=== PATIENT | male | born 1945 | race Caucasian/White ===

== ENCOUNTER → 2018-05-07 | Outpatient (REF) | payer MEDICARE, OTHER ==
[2018-05-07 10:11] LABS: INTERNATIONAL NORMALIZED RATIO 4.2 RATIO (0.7-1.3); PROTHROMBIN TIME 43.5 SECONDS (9.0-12.5)
== END | disposition home or self-care (01) ==
LOC: LAB 09:18
DX: I35.9 Nonrheumatic aortic valve disorder, unspecified (principal); Z95.2 Presence of prosthetic heart valve; Z79.01 Long term (current) use of anticoagulants

== ENCOUNTER → 2018-05-12 | Outpatient (REF) | payer MEDICARE, OTHER ==
[2018-05-12 08:44] LABS: PROTHROMBIN TIME 30.9 SECONDS (9.0-12.5)
== END | disposition home or self-care (01) ==
LOC: LAB 08:05
DX: I35.9 Nonrheumatic aortic valve disorder, unspecified (principal); Z95.2 Presence of prosthetic heart valve; Z79.01 Long term (current) use of anticoagulants

== ENCOUNTER → 2018-05-20 | Outpatient (REF) | payer MEDICARE, OTHER ==
[2018-05-20 10:40] LABS: INTERNATIONAL NORMALIZED RATIO 2.4 RATIO (0.7-1.3); PROTHROMBIN TIME 25.2 SECONDS (9.0-12.5)
== END | disposition home or self-care (01) ==
LOC: LAB 09:35
DX: I35.9 Nonrheumatic aortic valve disorder, unspecified (principal); Z95.2 Presence of prosthetic heart valve; Z79.01 Long term (current) use of anticoagulants

== ENCOUNTER 2022-05-10 08:27 | Emergency (ER) | payer MEDICARE, OTHER ==
[~2022-05-10] VITALS: Ht 170.2 cm; Wt 82.0 kg
[2022-05-10 10:25] LABS: BASO% 0.5 % (0-3); EOS% 2.5 % (0-8); HEMATOCRIT 40.2 % (39.0-50.0); HEMOGLOBIN 13.3 g/dl (14.0-18.0); IMMATURE GRANULOCYTES 0.3 % (0.0-5.0); LYMPH% 9.8 % (15-41); MEAN CELL VOLUME 80.7 fL CALC (80.0-100.0); MEAN CORPUSCULAR HGB 26.7 pG CALC (26.0-32.0); MEAN CORPUSCULAR HGB CONC 33.1 g/dL CAL (32.0-36.0); MONO% 8.3 % (2-13); NEUT# 6.22 thou/uL (1.82-7.42); NEUT% 78.6 % (42-76); RED BLOOD COUNT 4.98 mill/uL (4.70-6.10); RED CELL DISTRI WIDTH 14.4 % (11.5-15.5)
[2022-05-10 10:47] LABS: INTERNATIONAL NORMALIZED RATIO 2.9 RATIO (0.7-1.3); PROTHROMBIN TIME 27.6 SECONDS (9.0-12.5)
[2022-05-10 10:48] LABS: ALBUMIN 4.5 g/dL (3.2-5.0); ALKALINE PHOSPHATASE 89 u/l (38-126); ANION GAP 10 (6-22 (CALC)); BUN 14 mg/dL (8-23); BUN/CREATININE RATIO 12 (12-20 (CALC)); CARBON DIOXIDE 24 mmol/l (22-30); CHLORIDE 108 mmol/l (95-108); CREATININE 1.2 mg/dL (0.7-1.3); GFR FOR AFR.AMER. > 60 ML/MIN (>=60 (CALC)); GFR OTHER RACES 59 ML/MIN (>=60 (CALC)); LIPASE 97 u/l (23-300); SGOT/AST 27 u/l (19-48); SODIUM 138 mmol/l (137-146)
[2022-05-10 10:51] LABS: BILIRUBIN, TOTAL 0.3 mg/dL (0.2-1.3)
[2022-05-10 11:14] LABS: URINE BLOOD DIPSTICK MODERATE (NEGATIVE); URINE COLOR YELLOW; URINE GLUCOSE - DIPSTICK NEGATIVE (NEGATIVE); URINE KETONE NEGATIVE (NEGATIVE); URINE LEUK ESTERASE NEGATIVE (Negative); URINE NITRITE - DIPSTICK NEGATIVE (Negative); URINE PH 5.5 (4.5-8.0); URINE PROTEIN - DIPSTICK NEGATIVE (NEG-TRACE); URINE UROBILINOGEN - DIPSTICK 0.2 E.U./dL (0.2)
[2022-05-10 11:16] LABS: URINE BILIRUBIN - DIPSTICK SMALL (NEGATIVE); URINE CLARITY SL CLOUDY
[2022-05-10 15:55] VITALS: BP 90/52
== END 2022-05-10 16:12 | disposition home or self-care (01) ==
LOC: ED 08:27
PROVIDERS: Emergency Medicine
DX: U07.1 COVID-19 (principal); R09.89 Other specified symptoms and signs involving the circulatory and respiratory systems; R09.81 Nasal congestion; R11.0 Nausea; R19.5 Other fecal abnormalities; R91.1 Solitary pulmonary nodule; I10 Essential (primary) hypertension; J43.9 Emphysema, unspecified
CPT/HCPCS: Q9967